=== PATIENT | female | born 1960 | race Caucasian/White ===

== ENCOUNTER 2020-07-31 20:20 | Inpatient (IN) | payer MEDICAID ==
[~2020-07-31] VITALS: Ht 160 cm; Wt 95.7 kg
[2020-07-31] MEDS ORDERED: ONDANSETRON HCL 4MG/2ML INJ IV STA (21:53)
[2020-07-31] MEDS ORDERED: MORPHINE SULFATE 4 MG/ML CPJ (NOT FOR IM USE) IV STA (21:53)
[2020-07-31] MEDS ORDERED: CLINDAMYCIN 600 MG in DEXTROSE 5% WATER 50 ML IV ONE (22:00)
[2020-07-31] MEDS ORDERED: SODIUM CHLORIDE 0.9% 1,000 ML IV ONE (22:00)
[2020-07-31] MEDS ORDERED: CLINDAMYCIN 600MG PREMIX 50 ML IV NR (22:15)
[2020-07-31 22:57] LABS: BASOPHILS % 0.5 % (0.0-2.0); EOSINOPHILS % 3.5 % (0.0-5.0); HEMATOCRIT. 38.5 % (36.0-48.0); LYMPHOCYTES % 29.2 % (20.0-50.0); MEAN CORPUSCULAR HEMOGLOBIN 27.4 pg (28.0-32.0); MEAN CORPUSCULAR VOLUME 81.3 fL (81.0-99.0); MEAN PLATELET VOLUME 8.5 fl (7.4-10.4); MONOCYTES % 4.6 % (2.0-8.0); NEUTROPHILS % 62.2 % (40.0-76.0); PLATELET 136 x1000/uL (130-400); RED BLOOD CELL COUNT 4.74 mill/uL (4.2-5.4); RED CELL DISTRIBUTION WIDTH 14.8 % (11.6-14.6)
[2020-07-31 23:04] LABS: CHLORIDE 101 mEq/L (98-107)
[2020-08-01] MEDS ORDERED: ACETAMINOPHEN 325MG TABLET PO PRN (09:30)
[2020-08-01] MEDS ORDERED: ONDANSETRON HCL 4MG/2ML INJ IV PRN (09:30)
[2020-08-01] MEDS ORDERED: DEXTROSE 50% WATER 50ML SYRINGE IV PRN (09:30)
[2020-08-01] MEDS ORDERED: PIPERACILLIN/TAZ 3.375G PREMIX 50 ML IV SCH (10:00)
[2020-08-01] MEDS ORDERED: IOHEXOL-350 100 ML BOTTLE ONE ×2 (10:37→15:25)
[2020-08-01] MEDS ORDERED: VANCOMYCIN 1 G PREMIX 200 ML IV SCH (11:00)
[2020-08-01] MEDS: BLOOD SUGAR DIAGNOSTIC STRIP TEST SCH ×3 (13:09→21:00)
[2020-08-01] MEDS: INSULIN LISPRO 100 UNITS/ML SUBCUT SCH ×3 (13:20→21:02)
[2020-08-01] MEDS ORDERED: INSULIN LISPRO 100 UNITS/ML SUBCUT SCH (13:20)
[2020-08-01 16:00] VITALS: BP 127/70
[2020-08-01 18:00] VITALS: BP 127/70
[2020-08-01] MEDS ORDERED: VANCOMYCIN 1250MG in DEXTROSE 5% WATER 250ML IV SCH (18:00)
[2020-08-01] MEDS: PIPERACILLIN/TAZOBACTAM 3.375 G in DEXT 5% WATER 100 ML IV SCH (18:11)
[2020-08-01] MEDS ORDERED: AMOX-424 MT (18:55)
[2020-08-01] MEDS ORDERED: T3 PO (18:55)
[2020-08-01] MEDS ORDERED: LIDO35.44 TP (18:55)
[2020-08-01] MEDS ORDERED: SILV50CR31 TP (18:55)
[2020-08-01] MEDS ORDERED: *PATIENT'S OWN MEDICATION STORAGE XX SCH (19:15)
[2020-08-01 20:00] VITALS: BP 146/74
[2020-08-02] VITALS: BP 140/75
[2020-08-02] MEDS: PIPERACILLIN/TAZOBACTAM 3.375 G in DEXT 5% WATER 100 ML IV SCH ×4 (00:14→18:30)
[2020-08-02 04:00] VITALS: BP 135/69
[2020-08-02] MEDS: HYDROCODONE/ACETAMINOPHEN 5/325MG TABLET PO PRN ×2 (05:57→16:19)
[2020-08-02 07:10] LABS: BASOPHILS % 0.4 % (0.0-2.0); EOSINOPHILS % 3.3 % (0.0-5.0); HEMATOCRIT. 36.2 % (36.0-48.0); HEMOGLOBIN. 12.2 g/dL (12.0-16.0); LYMPHOCYTES % 15.8 % (20.0-50.0); MEAN CORPUSCULAR HEMOGLOBIN 27.3 pg (28.0-32.0); MEAN CORPUSCULAR VOLUME 80.7 fL (81.0-99.0); MEAN PLATELET VOLUME 8.4 fl (7.4-10.4); MONOCYTES % 4.8 % (2.0-8.0); NEUTROPHILS % 75.7 % (40.0-76.0); PLATELET 124 x1000/uL (130-400); RED BLOOD CELL COUNT 4.49 mill/uL (4.2-5.4); RED CELL DISTRIBUTION WIDTH 14.7 % (11.6-14.6)
[2020-08-02 07:20] LABS: CHLORIDE 108 mEq/L (98-107)
[2020-08-02] MEDS: BLOOD SUGAR DIAGNOSTIC STRIP TEST SCH ×4 (07:24→21:00)
[2020-08-02] MEDS: INSULIN LISPRO 100 UNITS/ML SUBCUT SCH ×4 (07:50→21:00)
[2020-08-02 08:00] VITALS: BP 126/73
[2020-08-02] MEDS ORDERED: FENTANYL CITRATE/PF 50MCG/ML 5ML VIAL ONE (11:52)
[2020-08-02] MEDS ORDERED: MIDAZOLAM HCL 5 MG/5 ML VIAL ONE (11:53)
[2020-08-02] MEDS ORDERED: IODIXANOL 320MG/ML 100 ML BOTTLE IV ONE (11:53)
[2020-08-02] MEDS ORDERED: LIDOCAINE HCL 1% 20ML VIAL (Pyxis) INJ ONE (11:54)
[2020-08-02] MEDS ORDERED: IOHEXOL-300 100 ML BOTTLE ONE (12:51)
[2020-08-02] MEDS ORDERED: HEPARIN SODIUM 1,000 UNIT/1ML VIAL IV ONE (13:00)
[2020-08-02 20:00] VITALS: BP 123/72
[2020-08-03] VITALS: BP 153/90
[2020-08-03] MEDS: PIPERACILLIN/TAZOBACTAM 3.375 G in DEXT 5% WATER 100 ML IV SCH ×2 (00:52→06:20)
[2020-08-03] MEDS: HYDROCODONE/ACETAMINOPHEN 5/325MG TABLET PO PRN ×2 (01:03→11:07)
[2020-08-03 04:00] VITALS: BP 133/70
[2020-08-03] MEDS: BLOOD SUGAR DIAGNOSTIC STRIP TEST SCH ×2 (06:20→12:28)
[2020-08-03] MEDS: INSULIN LISPRO 100 UNITS/ML SUBCUT SCH ×2 (07:50→12:28)
[2020-08-03 08:00] VITALS: BP 144/61
[2020-08-03 12:00] VITALS: BP 155/70
== END 2020-08-03 12:23 | disposition home health service (06) | DRG 181 ==
LOC: ER 20:20 → 6EST 23:28 → EDBEDREQSVC 23:31 → EDBEDREQ 23:31 → EDBEDREQTM 23:31 → CANRESERV 08-01 10:02 → ENRESERV 08-01 10:02
PROVIDERS: ADMIT Internal Medicine; ATTEND Internal Medicine
PROC: 047N3DZ Dilation of Left Popliteal Artery with Intraluminal Device, Percutaneous Approach (ICD-10-PCS; principal; 2020-08-02)
PROC: B41D1ZZ Fluoroscopy of Aorta and Bilateral Lower Extremity Arteries using Low Osmolar Contrast (ICD-10-PCS; 2020-08-02)
DX: I70.262 Atherosclerosis of native arteries of extremities with gangrene, left leg (principal); E11.621 Type 2 diabetes mellitus with foot ulcer; E66.9 Obesity, unspecified; E78.5 Hyperlipidemia, unspecified; E87.1 Hypo-osmolality and hyponatremia; L97.329 Non-pressure chronic ulcer of left ankle with unspecified severity; Z20.828 Contact with and (suspected) exposure to other viral communicable diseases; I10 Essential (primary) hypertension; L97.529 Non-pressure chronic ulcer of other part of left foot with unspecified severity; I87.2 Venous insufficiency (chronic) (peripheral); I89.0 Lymphedema, not elsewhere classified; Z86.73 Personal history of transient ischemic attack (TIA), and cerebral infarction without residual deficits; Z68.37 Body mass index [BMI] 37.0-37.9, adult; Z71.3 Dietary counseling and surveillance; E11.65 Type 2 diabetes mellitus with hyperglycemia
CPT/HCPCS: 36415; 37226; 73600; 73620; 75635; 75710; 80048; 80053; 82962; 83036; 83605; 84145; 85025; 85347; 87426; 93005; 96365; 99285; C1725; C1760; C1769; C1887; C1893; J1644; J1815; J2250; J2270; J2405; J2543; J3010; J3370; J3490; J7030; J7060; Q9967

== ENCOUNTER 2022-09-20 10:32 | Inpatient (IN) | payer MEDICAID, OTHER ==
[~2022-09-20] VITALS: Ht 162.6 cm; Wt 98.0 kg
[~2022-09-20 10:32] MED LIST: AMOX-424 MT; LIDO35.421 TP; SILV50CR31 TP; T3 PO
[2022-09-20 11:23] LABS: HEMATOCRIT. 38.4 % (36.0-48.0); HEMOGLOBIN. 12.9 g/dL (12.0-16.0); MEAN CORPUSCULAR HEMOGLOBIN 27.1 pg (28.0-32.0); MEAN CORPUSCULAR VOLUME 80.9 fL (81.0-99.0); PLATELET 161 x1000/uL (130-400); RED BLOOD CELL COUNT 4.76 mill/uL (4.2-5.4); RED CELL DISTRIBUTION WIDTH 15.4 % (11.6-14.6)
[2022-09-20 11:30] LABS: INR 1.4; PARTIAL THROMBOPLASTIN TIME 62.9 sec (23.4-31.0); PROTHROMBIN TIME 14.4 sec (9.6-11.0)
[2022-09-20 12:03] LABS: CHLORIDE 105 mEq/L (98-107)
[2022-09-20 12:37] LABS: PLATELET ESTIMATE NORMAL
[2022-09-20] MEDS ORDERED: ASPIRIN 325MG EC TABLET PO ONE (13:15)
[2022-09-20] MEDS ORDERED: ONDANSETRON HCL 4MG/2ML INJ IV PRN (14:30)
[2022-09-20] MEDS ORDERED: ACETAMINOPHEN 325MG TABLET PO PRN (14:30)
[2022-09-20] MEDS ORDERED: CLONIDINE 0.1MG TABLET PO PRN (14:30)
[2022-09-20] MEDS ORDERED: IPRATROPIUM/ALBUTEROL 0.5-3(2.5)MG/3ML NEB HHN PRN (14:30)
[2022-09-20] MEDS ORDERED: IPRATROPIUM BROMIDE (0.02%) 0.5MG/2.5ML NEB HHN PRN (14:45)
[2022-09-20] MEDS ORDERED: ALBUTEROL (0.083%) 2.5MG/3ML NEB HHN PRN (14:45)
[2022-09-20] MEDS ORDERED: DEXTROSE 50% WATER 50ML SYRINGE IV PRN (15:30)
[2022-09-20] MEDS: BLOOD SUGAR DIAGNOSTIC STRIP TEST SCH ×2 (17:11→21:18)
[2022-09-20] MEDS: INSULIN LISPRO 100 UNITS/ML SUBCUT SCH ×2 (18:20→22:02)
[2022-09-20 19:09] LABS: BG BASE EXCESS -0.4 mmol/L (-2.0-2.0); BG CARBOXYHEMOGLOBIN 0.6 % (0.5-1.5); BG FRACTION INSPIRED OXYGEN 21; BG HCO3 ACT 23.1 mmol/L (22.0-26.0); BG METHEMOGLOBIN 0.5 % (0.0-1.5); BG OXYGEN SATURATION 94.9 % (92.0-98.5); BG OXYHEMOGLOBIN 93.9 % (94.0-97.0); BG PCO2 34.3 mmHg (35.0-45.0); BG PH 7.447 (7.350-7.450); BG PO2 71.3 mmHg (75.0-100.0); BG SAMPLE SITE RIGHT RADIAL; BG TOTAL HEMOGLOBIN 12.5 g/dL (12.0-18.0); BG VENT MODE ROOM AIR
[2022-09-20 20:06] LABS: CLARITY URINE CLEAR (CLEAR); COLOR URINE YELLOW (YELLOW); KETONES URINE NEGATIVE (NEGATIVE); LEUKOCYTE ESTERASE URINE NEGATIVE (NEGATIVE); NITRITE URINE NEGATIVE (NEGATIVE); OCCULT BLOOD URINE NEGATIVE (NEGATIVE); PH URINE 5.5 (4.5-8.0); PROTEIN URINE 2+ (NEGATIVE); SPECIFIC GRAVITY URINE 1.053 (1.005-1.030); UROBILINOGEN URINE 0.2 E.U./dL (0.2-1.0)
[2022-09-20 23:00] VITALS: BP 154/84
[2022-09-20 23:21] VITALS: BP 154/84
[2022-09-20] MEDS: DIPHENHYDRAMINE 50MG/ML VIAL IV PRN (23:37)
[2022-09-21] VITALS: BP 119/69
[2022-09-21] MEDS ORDERED: LORAZEPAM 0.5MG TABLET PO PRN (00:15)
[2022-09-21 01:39] LABS: CREATINE KINASE MB FRACTION 4.7 ng/mL (0.5-3.6)
[2022-09-21 04:00] VITALS: BP 154/85
[2022-09-21] MEDS: BLOOD SUGAR DIAGNOSTIC STRIP TEST SCH ×4 (06:35→21:07)
[2022-09-21 07:17] LABS: BASOPHILS % 0.3 % (0.0-2.0); EOSINOPHILS % 0.6 % (0.0-5.0); HEMATOCRIT. 33.6 % (36.0-48.0); HEMOGLOBIN. 11.5 g/dL (12.0-16.0); MEAN CORPUSCULAR HEMOGLOBIN 27.3 pg (28.0-32.0); MEAN CORPUSCULAR VOLUME 79.5 fL (81.0-99.0); MEAN PLATELET VOLUME 8.3 fl (7.4-10.4); MONOCYTES % 4.8 % (2.0-8.0); NEUTROPHILS % 80.3 % (40.0-76.0); PLATELET 151 x1000/uL (130-400); RED BLOOD CELL COUNT 4.23 mill/uL (4.2-5.4); RED CELL DISTRIBUTION WIDTH 15.7 % (11.6-14.6)
[2022-09-21] MEDS: INSULIN LISPRO 100 UNITS/ML SUBCUT SCH ×4 (07:18→21:00)
[2022-09-21 07:39] LABS: CHLORIDE 107 mEq/L (98-107)
[2022-09-21 07:54] LABS: CREATINE KINASE 573 IU/L (26-192); CREATINE KINASE MB FRACTION 5.2 ng/mL (0.5-3.6)
[2022-09-21 12:00] VITALS: BP 147/75
[2022-09-21] MEDS: ENOXAPARIN 100MG/ML SYR SUBCUT SCH ×2 (14:08→22:01)
[2022-09-21 16:00] VITALS: BP 115/83
[2022-09-21 20:00] VITALS: BP 174/74
[2022-09-21] MEDS: HYDRALAZINE 20MG/ML VIAL IV PRN (20:42)
[2022-09-22] VITALS (21 sets, daily range): BP systolic 119–164; BP diastolic 58–118
[2022-09-22] MEDS: BLOOD SUGAR DIAGNOSTIC STRIP TEST SCH ×4 (06:41→21:00)
[2022-09-22] MEDS: INSULIN LISPRO 100 UNITS/ML SUBCUT SCH ×4 (06:42→21:00)
[2022-09-22 07:00] LABS: BASOPHILS % 0.3 % (0.0-2.0); EOSINOPHILS % 0.8 % (0.0-5.0); HEMATOCRIT. 34.3 % (36.0-48.0); HEMOGLOBIN. 11.7 g/dL (12.0-16.0); LYMPHOCYTES % 22.3 % (20.0-50.0); MEAN CORPUSCULAR HEMOGLOBIN 27.3 pg (28.0-32.0); MEAN PLATELET VOLUME 8.3 fl (7.4-10.4); MONOCYTES % 6.1 % (2.0-8.0); NEUTROPHILS % 70.5 % (40.0-76.0); PLATELET 157 x1000/uL (130-400); RED BLOOD CELL COUNT 4.29 mill/uL (4.2-5.4); RED CELL DISTRIBUTION WIDTH 15.8 % (11.6-14.6)
[2022-09-22] MEDS: ENOXAPARIN 100MG/ML SYR SUBCUT SCH (09:34)
[2022-09-22] MEDS ORDERED: IOHEXOL-350 100 ML BOTTLE ONE (12:19)
[2022-09-22] MEDS ORDERED: ASPIRIN 325MG TABLET PO NR (13:04)
[2022-09-22] MEDS ORDERED: HEPARIN 25,000 UNITS PREMIX 250 ML IV PRN ×3 (13:45→21:00)
[2022-09-22] MEDS ORDERED: METF-415 MT (14:05)
[2022-09-22] MEDS ORDERED: ATOR-2 MT (14:05)
[2022-09-22] MEDS ORDERED: CLOP75TA33 MT (14:06)
[2022-09-22] MEDS ORDERED: LISI-648 MT (14:07)
[2022-09-22] MEDS ORDERED: ASPI-1406 MT (14:07)
[2022-09-22] MEDS: HEPARIN 25,000 UNITS PREMIX 250 ML IV PRN (22:31)
[2022-09-23] VITALS (65 sets, daily range): BP systolic 70–193; BP diastolic 47–128
[2022-09-23] MEDS: INSULIN LISPRO 100 UNITS/ML SUBCUT SCH ×4 (06:30→20:14)
[2022-09-23] MEDS: BLOOD SUGAR DIAGNOSTIC STRIP TEST SCH ×4 (06:30→20:14)
[2022-09-23] MEDS: ASPIRIN 325MG TABLET PO SCH (08:41)
[2022-09-23] MEDS: HYDRALAZINE 20MG/ML VIAL IV PRN (12:41)
[2022-09-24] VITALS (44 sets, daily range): BP systolic 110–168; BP diastolic 53–102
[2022-09-24] MEDS: DIPHENHYDRAMINE 50MG/ML VIAL IV PRN (04:02)
[2022-09-24 05:30] LABS: CHLORIDE 109 mEq/L (98-107)
[2022-09-24] MEDS: INSULIN LISPRO 100 UNITS/ML SUBCUT SCH ×4 (05:37→21:00)
[2022-09-24] MEDS: BLOOD SUGAR DIAGNOSTIC STRIP TEST SCH ×4 (05:37→21:00)
[2022-09-24 06:15] LABS: BASOPHILS % 0.3 % (0.0-2.0); EOSINOPHILS % 2.5 % (0.0-5.0); HEMATOCRIT. 32.9 % (36.0-48.0); HEMOGLOBIN. 11.1 g/dL (12.0-16.0); LYMPHOCYTES % 14.5 % (20.0-50.0); MEAN CORPUSCULAR HEMOGLOBIN 27.2 pg (28.0-32.0); MEAN CORPUSCULAR VOLUME 80.5 fL (81.0-99.0); MEAN PLATELET VOLUME 8.8 fl (7.4-10.4); MONOCYTES % 4.6 % (2.0-8.0); NEUTROPHILS % 78.1 % (40.0-76.0); PLATELET 135 x1000/uL (130-400); RED BLOOD CELL COUNT 4.08 mill/uL (4.2-5.4); RED CELL DISTRIBUTION WIDTH 15.4 % (11.6-14.6)
[2022-09-24] MEDS: POTASSIUM CHLORIDE 20MEQ TABLET SR PO NR ×2 (08:27→08:28)
[2022-09-24] MEDS: ASPIRIN 325MG TABLET PO SCH (08:28)
[2022-09-24] MEDS: HEPARIN 25,000 UNITS PREMIX 250 ML IV PRN (08:39)
[2022-09-24] MEDS ORDERED: IPRATROPIUM/ALBUTEROL 0.5-3(2.5)MG/3ML NEB HHN PRN (12:30)
[2022-09-25] VITALS (77 sets, daily range): BP systolic 123–183; BP diastolic 69–133
[2022-09-25 05:30] LABS: BASOPHILS % 0.4 % (0.0-2.0); EOSINOPHILS % 3.3 % (0.0-5.0); HEMATOCRIT. 34.1 % (36.0-48.0); HEMOGLOBIN. 11.6 g/dL (12.0-16.0); LYMPHOCYTES % 15.3 % (20.0-50.0); MEAN CORPUSCULAR HEMOGLOBIN 27.3 pg (28.0-32.0); MEAN CORPUSCULAR VOLUME 80.1 fL (81.0-99.0); MEAN PLATELET VOLUME 8.2 fl (7.4-10.4); MONOCYTES % 5.3 % (2.0-8.0); NEUTROPHILS % 75.7 % (40.0-76.0); PLATELET 147 x1000/uL (130-400); RED BLOOD CELL COUNT 4.26 mill/uL (4.2-5.4); RED CELL DISTRIBUTION WIDTH 15.2 % (11.6-14.6)
[2022-09-25 05:55] LABS: CHLORIDE 109 mEq/L (98-107)
[2022-09-25] MEDS: BLOOD SUGAR DIAGNOSTIC STRIP TEST SCH ×4 (06:57→20:47)
[2022-09-25] MEDS: INSULIN LISPRO 100 UNITS/ML SUBCUT SCH ×4 (06:58→20:47)
[2022-09-25] MEDS: ASPIRIN 325MG TABLET PO SCH ×2 (09:00→18:34)
[2022-09-25] MEDS ORDERED: HEPARIN IV STA (11:32)
[2022-09-25] MEDS ORDERED: SODIUM CHLORIDE 0.9% IV STA (11:32)
[2022-09-25] MEDS ORDERED: IODIXANOL 320MG/ML 100 ML BOTTLE IV ONE (11:46)
[2022-09-25] MEDS ORDERED: LIDOCAINE HCL 1% 20ML VIAL (Pyxis) INJ ONE (11:46)
[2022-09-25] MEDS ORDERED: HEPARIN IV SCH (12:00)
[2022-09-25] MEDS ORDERED: SODIUM CHLORIDE 0.9% IV SCH (12:00)
[2022-09-25] MEDS ORDERED: MIDAZOLAM HCL 2 MG/2 ML VIAL ONE (12:05)
[2022-09-25] MEDS ORDERED: FENTANYL CITRATE/PF 50MCG/ML 2ML VIAL ONE (12:06)
[2022-09-25] MEDS ORDERED: HEPARIN 1000 UNITS/ML 10ML ONE (12:07)
[2022-09-26] VITALS (96 sets, daily range): BP systolic 64–181; BP diastolic 19–110
[2022-09-26] MEDS: HYDRALAZINE 20MG/ML VIAL IV PRN ×2 (02:29→10:03)
[2022-09-26 06:01] LABS: CHLORIDE 108 mEq/L (98-107)
[2022-09-26 06:06] LABS: PHOSPHORUS 4.1 mg/dL (2.5-4.9)
[2022-09-26] MEDS: BLOOD SUGAR DIAGNOSTIC STRIP TEST SCH ×4 (06:30→21:06)
[2022-09-26] MEDS: INSULIN LISPRO 100 UNITS/ML SUBCUT SCH ×4 (07:00→21:00)
[2022-09-26 07:22] LABS: BASOPHILS % 0.2 % (0.0-2.0); EOSINOPHILS % 1.6 % (0.0-5.0); HEMATOCRIT. 35.5 % (36.0-48.0); HEMOGLOBIN. 12.1 g/dL (12.0-16.0); LYMPHOCYTES % 11.5 % (20.0-50.0); MEAN CORPUSCULAR HEMOGLOBIN 27.5 pg (28.0-32.0); MEAN CORPUSCULAR VOLUME 80.5 fL (81.0-99.0); MEAN PLATELET VOLUME 8.8 fl (7.4-10.4); NEUTROPHILS % 81.7 % (40.0-76.0); PLATELET 121 x1000/uL (130-400); RED BLOOD CELL COUNT 4.41 mill/uL (4.2-5.4); RED CELL DISTRIBUTION WIDTH 15.6 % (11.6-14.6)
[2022-09-26] MEDS: ASPIRIN 325MG TABLET PO SCH (08:27)
[2022-09-26 14:11] LABS: BG BASE EXCESS -2.5 mmol/L (-2.0-2.0); BG CARBOXYHEMOGLOBIN 0.6 % (0.5-1.5); BG DEOXYHEMOGLOBIN 3.4 % (0.0-5.0); BG FRACTION INSPIRED OXYGEN 30; BG HCO3 ACT 21.8 mmol/L (22.0-26.0); BG METHEMOGLOBIN 0.6 % (0.0-1.5); BG OXYGEN SATURATION 96.6 % (92.0-98.5); BG OXYHEMOGLOBIN 95.4 % (94.0-97.0); BG PCO2 36.4 mmHg (35.0-45.0); BG PH 7.395 (7.350-7.450); BG PO2 89.1 mmHg (75.0-100.0); BG SAMPLE SITE LEFT RADIAL; BG TOTAL HEMOGLOBIN 13.7 g/dL (12.0-18.0); BG VENT MODE NASAL CANNULA
[2022-09-26] MEDS: SODIUM CHLORIDE 3% 500 ML IV SCH (18:04)
[2022-09-26] MEDS: MANNITOL 20% (20GM/100ML) BAG 500ML PREMIX IV SCH (21:42)
[2022-09-27] VITALS (111 sets, daily range): BP systolic 81–171; BP diastolic 39–114
[2022-09-27] MEDS: MANNITOL 20% (20GM/100ML) BAG 500ML PREMIX IV SCH ×6 (01:40→21:14)
[2022-09-27] MEDS: HYDRALAZINE 20MG/ML VIAL IV PRN (04:50)
[2022-09-27] MEDS: INSULIN LISPRO 100 UNITS/ML SUBCUT SCH ×4 (06:09→20:32)
[2022-09-27] MEDS: BLOOD SUGAR DIAGNOSTIC STRIP TEST SCH ×4 (06:09→20:31)
[2022-09-27] MEDS: SODIUM CHLORIDE 3% 500 ML IV SCH (09:11)
[2022-09-27] MEDS: ASPIRIN 325MG TABLET PO SCH (09:11)
[2022-09-27] MEDS ORDERED: IOHEXOL-300 100 ML BOTTLE ONE (12:28)
[2022-09-27] MEDS ORDERED: LIDOCAINE HCL 1% 10 MG/ML 10ML VIAL ONE (12:28)
[2022-09-27] MEDS ORDERED: IOHEXOL-300 50 ML BOTTLE IV ONE (12:28)
[2022-09-27] MEDS ORDERED: CEFAZOLIN 1000MG PREMIX 50 ML IV NR (12:30)
[2022-09-27] MEDS ORDERED: SUCCINYLCHOLINE CHLORIDE 200MG/10ML IV ONE (22:00)
[2022-09-27] MEDS ORDERED: ETOMIDATE 2MG/ML 10ML VIAL IV ONE (22:00)
[2022-09-27] MEDS ORDERED: NOREPINEPHRINE 32 MG in DEXT 5% WATER 218 ML IV PRN (22:45)
[2022-09-27] MEDS ORDERED: PROPOFOL 10MG/ML 100ML 100 ML IV PRN (22:45)
[2022-09-27] MEDS ORDERED: PHENYLEPHRINE 100 MG in DEXT 5% WATER 240 ML IV PRN (23:45)
[2022-09-28 00:15] VITALS: BP 89/70
== END 2022-09-28 00:20 | disposition short-term general hospital (02) | DRG 45 ==
LOC: ER 10:32 → 7WST 13:56 → ENRESERV 22:18 → MICUNO 09-22 18:16
PROVIDERS: ADMIT Internal Medicine; ATTEND Internal Medicine
PROC: 4A00X4Z Measurement of Central Nervous Electrical Activity, External Approach (ICD-10-PCS; 2022-09-21)
PROC: 06H03DZ Insertion of Intraluminal Device into Inferior Vena Cava, Percutaneous Approach (ICD-10-PCS; 2022-09-25)
PROC: B3151ZZ Fluoroscopy of Bilateral Common Carotid Arteries using Low Osmolar Contrast (ICD-10-PCS; 2022-09-25)
PROC: B31F1ZZ Fluoroscopy of Left Vertebral Artery using Low Osmolar Contrast (ICD-10-PCS; 2022-09-25)
PROC: 5A1935Z Respiratory Ventilation, Less than 24 Consecutive Hours (ICD-10-PCS; principal; 2022-09-27)
PROC: 05HY33Z Insertion of Infusion Device into Upper Vein, Percutaneous Approach (ICD-10-PCS; 2022-09-27)
PROC: B54MZZA Ultrasonography of Right Upper Extremity Veins, Guidance (ICD-10-PCS; 2022-09-27)
PROC: 0BH17EZ Insertion of Endotracheal Airway into Trachea, Via Natural or Artificial Opening (ICD-10-PCS; 2022-09-27)
DX: I63.511 Cerebral infarction due to unspecified occlusion or stenosis of right middle cerebral artery (principal); G93.6 Cerebral edema; G93.40 Encephalopathy, unspecified; I65.21 Occlusion and stenosis of right carotid artery; I82.432 Acute embolism and thrombosis of left popliteal vein; I10 Essential (primary) hypertension; E66.01 Morbid (severe) obesity due to excess calories; R41.4 Neurologic neglect syndrome; Z20.822 Contact with and (suspected) exposure to COVID-19; E11.9 Type 2 diabetes mellitus without complications; Z79.899 Other long term (current) drug therapy; Z68.37 Body mass index [BMI] 37.0-37.9, adult; Z86.79 Personal history of other diseases of the circulatory system; Z98.2 Presence of cerebrospinal fluid drainage device; Z86.73 Personal history of transient ischemic attack (TIA), and cerebral infarction without residual deficits
CPT/HCPCS: 31500; 36224; 36415; 36573; 36600; 37191; 70496; 70498; 70551; 71045; 80048; 80053; 81003; 82375; 82550; 82553; 82805; 82962; 83036; 83735; 83880; 84100; 84295; 84484; 85025; 87426; 92610; 93005; 93970; 94002; 95816; 99285; C1725; C1760; C1769; C1880; C1893; J0330; J0360; J0690; J1200; J1644; J1650; J1815; J2250; J2405; J2704; J3010; J3490; J7030; J7060; Q9967